=== PATIENT | male | born 1965 | race Caucasian/White ===

== ENCOUNTER 2021-04-29 07:41 | Emergency (ER) | payer OTHER, SELFPAY ==
--- NOTE | ~2021-04-29 | XR_ITS ---
EXAMINATION: XR FOOT, LEFT CLINICAL INFORMATION: Trauma COMPARISON: None TECHNIQUE: AP, lateral, and oblique views of the left foot. FINDINGS: There is a small ossification projecting over the soft tissues adjacent to the anterior talus appreciated on the lateral view questionable for changes related to trauma. No other fracture is seen. Bone alignment is normal. Joint spaces are normal. Soft tissues are otherwise normal. XR/XR foot LT 2V IMPRESSION: Small soft tissue ossification adjacent to the anterior talus appreciated on the lateral view only questionable for fracture. Clinical correlation recommended.
[2021-04-29 07:49] VITALS: BP 140/77; PULSE 84; RESP 16; TEMP 36.6; O2SAT 99; BMI 23.1
--- NOTE | 2021-04-29 08:48 | ED_ITS ---
HPI - Extremity Injury (Lower) General Chief Complaint: Extremity Injury, Lower Stated Complaint: foot inj Time Seen by Provider: 04/29/21 08:43 Source: patient Mode of arrival: ambulatory Limitations: no limitations History of Present Illness MD complaint: ankle injury and foot injury Onset (ago): day(s) (2) Type of Injury: other (He reports he ran over his foot with an electric Nick palate) Place: work Severity: severe Severity scale (1-10): >10 Relieving factors: nothing Exacerbating factors: weight bearing, movement and palpation Context: direct blow Associated symptoms: swelling and able to partially bear weight Other symptoms: none Related Data Previous Rx's Medication Instructions Recorded acetaminophen 500 mg tablet 1,000 mg PO QID PRN #14 tab 04/29/21 (Tylenol Extra Strength) ibuprofen 800 mg tablet 800 mg PO Q8H PRN #14 tab 04/29/21 Allergies Allergy/AdvReac Type Severity Reaction Status Date / Time No Known Allergies Allergy Unverified 02/07/20 14:48 Review of Systems Review of Systems: Constitutional : No Weight loss, No Fever, No Chills, No Night Sweats, No Fatigue, No Malaise ENT/Mouth : No Hearing loss, No Ear Pain, No Nasal Congestion, No Sinus Pain, No Hoarseness, No sore throat, No Rhinorrhea, No Swallowing Difficulty Eyes: No Eye Pain, No Swelling, No Redness, No Foreign Body, No Discharge, No Vision Changes Cardiovascular : No Chest Pain, No SOB, No Dyspnea on Exertion, No Orthopnea, No Edema, No Palpitations Respiratory : No Cough, No Sputum, No Wheezing, No Smoke Exposure, No Dyspnea Gastrointestinal : No Nausea, No Vomiting, No Diarrhea, No Constipation, No abdominal Pain, No Hematochezia, No Melena Genitourinary : no irregular bleeding, No Dysuria, No Urinary Frequency, No Hematuria, No Urinary Incontinence, No Urgency, No Flank Pain, No Urinary Flow C hanges, No Hesitancy Musculoskeletal : + joint pain/swelling, No Myalgias Skin : No Skin Lesions, No rash Neuro : No Weakness, No Numbness, No Paresthesias, No Loss of Consciousness, No Dizziness, No Headache Psych : No Anxiety/Panic, No Depression, No SI/HI/AH/VH, No Social Issues, Heme/Lymph: No Bruising, No Bleeding,No Lymphadenopathy Endocrine : No Polyuria, No Polydipsia, No Temperature Intolerance Yes all other systems are reviewed and are negative [facility] Past Medical History Attestation statement: The following information was validated with the patient. Social History Social History Advance Directives: No Advance Directives Information Provided: No Physical Exam Vital Signs: Vital Signs: Last Vital Signs Temp 97.9 F 04/29/21 07:49 Pulse 84 04/29/21 07:49 Resp 16 04/29/21 07:49 BP 140/77 H 04/29/21 07:49 Pulse Ox 99 04/29/21 07:49 BMI result Body Mass Index 23.1 vital signs have been reviewed as normal and appeared to be correct. Blood pressure normal Heart rate normal. Respiration rate normal. Temperature normal. Oxygen saturation normal. Appearance: Alert. Oriented X3. No acute distress. Head: Normal external exam. Normocephalic. Atraumatic. Eyes: PERRLA. EOMI. Conjunctiva and sclera normal. Eyelids normal. ENT: Pharynx normal. Uvula midline. Moist mucous membranes. Neck: Normal inspection. Neck supple. FROM. CVS: Normal heart rate and rhythm. Respiratory: No respiratory distress. Painless inspiration. Skin: Skin warm and dry. Normal skin color. Normal skin turgor. No rashes/lesions/lacerations noted. Extremities: Patient with moderate tenderness to palpation to the anterior and posterior aspect of the left foot/ankle joint with soft tissue swelling noted to the posterior ankle/foot joint. No obvious deformities. Patient has full range of motion of ankle and foot joint. No obvious ligamentous or tendon injury. Achilles tendon is intact. No calf tenderness is noted. No lower extremity edema is noted. Otherwise all other Extremities exhibit normal range of motion and nontender. Neuro: Oriented X 3. No motor deficit. No sensory deficit. Reflexes normal. Normal steady gait. No focal neuro deficits noted. Vascular: + radial pulses/+ 2 distal pedal pulses/+2 dorsalis pedis b/l. Normal cap refill. No cyanosis noted to upper extremity nails and lower extremity toes nails. Course Course Course Narrative: 55-year-old male presenting to the ED with work related injury that occurred on Tuesday where he ran over his foot with an electric Pallet Nick and since then has been having pain and swelling to the left foot/ankle joint. X-ray obtained and revealed soft tissue swelling and possible anterior talus fracture otherwise no other acute processes. Therefore placed in an ortho boot with crutches and treat symptomatically I consulted with orthopedic MEGHA Hollis and she recommended this. Along with instructions to follow up [facility] and to return if any new or worsening symptoms. Patient understands agrees with this plan. MDM - Extremity Injury (Lower) Medical Records Attestation: I reviewed the patient's medical records. Imaging Data Left foot x-ray: Attestation: I personally reviewed and interpreted this imaging study as follows: Radiologist's impression: FINDINGS: There is a small ossification projecting over the soft tissues adjacent to the anterior talus appreciated on the lateral view questionable for changes related to trauma. No other fracture is seen. Bone alignment is normal. Joint spaces are normal. Soft tissues are otherwise normal. XR/XR foot LT 2V IMPRESSION: Small soft tissue ossification adjacent to the anterior talus appreciated on the lateral view only questionable for fracture. Clinical correlation recommended. Procedures Orthopedic Splinting/Casting Injury #1: Side: left Lower Extremity Injury Location: ankle and foot Lower Extremity Immobilizer: boot orthosis Other Orthopedic Equipment: crutches Discharge Plan Discharge Clinical Impression: Fracture of talus, Work related injury Patient Disposition: Home, Self-Care Instructions: Ankle Fracture (ED), Crutch Instructions (ED), Foot Fracture in Adults (ED), Return to Work Instructions (ED) Prescriptions: New ibuprofen 800 mg tablet 800 mg PO Q8H PRN (Reason: pain) Qty: 14 RF: 0 acetaminophen [Tylenol Extra Strength] 500 mg tablet 1,000 mg PO QID PRN (Reason: fever or pain) Qty: 14 RF: 0 Referrals: [facility] [Provider Group] - 2 days Shad Mathur MD [Physician] - 2 days Stand Alone Forms: Work/School Release Print Language: Citizen Of [place]
== END 2021-04-29 09:18 | disposition home or self-care (01) ==
PROVIDERS: Emergency Provider Emergency Medicine
DX: S92.102A Unspecified fracture of left talus, initial encounter for closed fracture (principal); W31.89XA Contact with other specified machinery, initial encounter; Y93.9 Activity, unspecified; Y92.9 Unspecified place or not applicable; Y99.0 Civilian activity done for income or pay
CPT/HCPCS: 73620; 99283; 99284

== ENCOUNTER → 2021-05-14 10:17 | Outpatient (BNVA) | payer OTHER, SELFPAY | PROVIDERS: Visit Provider Physician Assistant | DX: S86.012A Strain of left Achilles tendon, initial encounter (principal) | CPT/HCPCS: 99202 ==

== ENCOUNTER 2021-06-15 09:29 | Outpatient (REF) | payer OTHER, SELFPAY ==
--- NOTE | ~2021-06-15 | XR_ITS ---
EXAMINATION: XR FOOT, LEFT CLINICAL INFORMATION: Pain COMPARISON: Left foot radiographs 04/29/2021 TECHNIQUE: AP, lateral, and oblique views of the left foot. FINDINGS: Bones of the midfoot are well aligned. No tarsal, metatarsal or phalangeal fracture. Subtle cortical irregularity of the anterior talus is less well appreciated on today's imaging but possibly represents a healing avulsion fracture vs. subtle degenerative changes. No focal soft tissue swelling is present. No gross ankle joint effusion. XR/XR foot LT min 3V IMPRESSION: No definitive fracture.
== END 2021-06-15 09:30 | disposition home or self-care (01) ==
LOC: HO.HOSX 09:29
PROVIDERS: Visit Provider Physician Assistant
DX: M79.673 Pain in unspecified foot (principal)
CPT/HCPCS: 73630; 99212

== ENCOUNTER → 2021-06-23 11:13 | Outpatient (BNVA) | payer OTHER, SELFPAY | PROVIDERS: Visit Provider Physician Assistant | DX: S93.402D Sprain of unspecified ligament of left ankle, subsequent encounter (principal); S86.012D Strain of left Achilles tendon, subsequent encounter; L97.521 Non-pressure chronic ulcer of other part of left foot limited to breakdown of skin | CPT/HCPCS: 99212 ==

== ENCOUNTER 2021-08-05 05:46 | Emergency (ER) | payer OTHER, SELFPAY ==
--- NOTE | ~2021-08-05 | XR_ITS ---
EXAMINATION: XR FOOT, LEFT CLINICAL INFORMATION: Evaluate for ostial COMPARISON: June 15, 2021 and April 29, 2021 TECHNIQUE: AP, lateral, and oblique views of the left foot. FINDINGS: There is some soft tissue swelling seen about the proximal and distal second phalanx without adjacent erosion or osteopenia. There is question of a small skin ulceration about the medial aspect of the distal toe. No acute fracture or dislocation is evident. XR/XR foot LT min 3V IMPRESSION: No plain film evidence of acute osteomyelitis of the left foot. Soft tissue swelling about the second toe.
[2021-08-05 06:07] VITALS: BP 128/93; PULSE 81; RESP 16; TEMP 36.6; O2SAT 98; BMI 22.8
--- NOTE | 2021-08-05 08:03 | ED.EXTPRO ---
HPI - Extremity Problem General Chief complaint: Extremity Problem Stated complaint: L foot pain ; diabetes ?? Time Seen by Provider: 08/05/21 06:34 Source: patient Mode of arrival: ambulatory Limitations: no limitations History of Present Illness HPI Narrative: on and off rash to L foot since being in walking boot in april just put on bactrim keflex clotrimazole ointment 08/03 by urgent care center MD Complaint: extremity pain, extremity swelling and other (rash) Onset (ago): week(s) (1) Pain Consistency: constant Location: left and other (foot toes 2 - 4) Quality: aching Radiation: none Relieving factors: nothing Exacerbating factors: weight bearing and palpation Associated symptoms: rash Context: other (bouts of rash since wearing a walking boot for foot fracture, 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 construction 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) Related Data Previous Rx's Medication Instructions Recorded acetaminophen 500 mg tablet 1,000 mg PO QID PRN #14 tab 04/29/21 (Tylenol Extra Strength) ibuprofen 800 mg tablet 800 mg PO Q8H PRN #14 tab 04/29/21 cephalexin 500 mg capsule 500 mg PO BID 10 Days #20 cap 06/15/21 silver sulfadiazine 1 % topical 1 appl TOPICAL BID PRN #20 g 06/23/21 cream (Silvadene) levofloxacin 750 mg tablet 750 mg PO DAILY #10 tab 08/05/21 nystatin 100,000 unit/gram topical 1 appl TOPICAL TID 7 Days #30 g 08/05/21 powder Allergies Allergy/AdvReac Type Severity Reaction Status Date / Time No Known Allergies Allergy Verified 06/23/21 11:35 Review of Systems Review of Systems: Constitutional : No Fever, No Chills ENT/Mouth : No sore throat, No Rhinorrhea Eyes: No Eye Pain, No Swelling, No Redness Cardiovascular : No Chest Pain, No SOB Respiratory : No Cough, No Sputum Gastrointestinal : No Nausea, No Vomiting, No Diarrhea, No abdominal Pain Genitourinary : No Dysuria, No Hematuria Musculoskeletal : No joint pain, No Myalgias, No Joint Swelling Skin :pos Skin Lesions, positive skin rash Neuro : No Weakness, No Numbness, No Headache Psych : No Anxiety, No Depression Heme/Lymph: No Bruising, No Bleeding,No Lymphadenopathy Endocrine : No Polyuria, No Polydipsia All other systems reviewed and are negative PMFSH Past Medical History Attestation statement: The following information was validated with the patient. 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 Oriented X3. No acute distress. Eyes: Pupils equal, round and reactive to light. ENT: Pharynx normal. Neck: Normal inspection. Neck supple. CVS: Normal heart rate and rhythm. Pulses normal. Respiratory: No respiratory distress. Breath sounds normal. Abdomen: Soft and non-tender. Skin: Skin warm and dry. Normal skin color. Extremities: No lower extremity edema. L foot erythema on dorsum up to 2-4th toes area between toes is red and macerated with swelling of the digtis, thickened nails on all toes, very tender to touch, 2+ DP/PT pulses Neuro: Oriented X 3. No motor deficit. No sensory deficit. Course Course Course Narrative: foot is less red neg infl markers, neg systemic symptoms plan is to switch from bactrim to levofloxacin, no boots for 1 week, no ointment but powder can continue cephalexin MDM - Extremity (Nontraumatic) MDM Narrative Medical decision making narrative: 55 yo male hx of smoking, reports intermittent rash to left foot since wearing a walking boot in april - at this time he has cellulitis and the areas between his toes are macerated. He wears construction boots to work. Will obtain labs, xrays for osteo, inflammatory markers, start on IV antitibiotics as he has been taking cephalexin and bactrim without relief. Will need topical therapy likely powder and not ointment as his feet are already wet from the boots. Suspect he may not want to stay overnight from our initial interactions if that is the case he will need some form of pseudomonas coverage of his foot given the boots and likely a new pair of boots Lab Data Result diagrams: 08/05/21 08:24 08/05/21 08:15 Labs: Lab Results 08/05/21 08/05/21 08/05/21 Range/Units 08:14 08:15 08:15 WBC (4.8-10.8) X10*3/uL RBC (4.60-5.80) X10*6/uL Hgb (14.0-18.0) g/dl Hct (42.0-52.0) % MCV (80.0-98.0) fL MCH (27.0-33.0) pg MCHC (31.0-36.0) g/dl RDW (11.0-16.0) % Plt Count (160-400) X10*3/uL MPV (9.4-12.4) fL Immature Gran % (Auto) (0.0-0.4) % Neut % (Auto) (45-73) % Lymph % (Auto) (20-40) % Divide % (Auto) (2-11) % Eos % (Auto) (0-4) % Baso % (Auto) (0-2) % Lymph # (Auto) (1.2-4.9) X10*3/uL Divide # (Auto) (0.1-1.2) X10*3/uL Eos # (Auto) (0.0-0.4) X10*3/uL Baso # (Auto) (0.0-0.2) X10*3/uL Abs Immat Gran (auto) (0.00-0.03) X10*3/uL Absolute Neuts (auto) (2.0-8.3) x10*3/uL Absolute Nucleated RBC (0.0-0.012) X10*3/uL Nucleated RBC % (auto) (0.0-0.2) /100WBC ESR 1 (0-15) MM/HR Sodium 140 (135-145) mmol/L Potassium 4.7 (3.3-5.1) mmol/L Chloride 108 (96-108) mmol/L Carbon Dioxide 23 (22-29) mmol/L Anion Gap 14 (12-20) BUN 16 (9-16) mg/dL Creatinine 0.81 (0.5-1.4) mg/dL Estim Creat Clear Calc 104.8 Estimated GFR > 60 Random Glucose 106 (60-115) mg/dL Estimat Average Glucose mg/dL Hemoglobin A1c % % Lactic Acid 0.9 (0.5-2.0) mmol/L Calcium 9.7 (8.4-10.2) mg/dL Magnesium 2.5 (1.6-2.6) mg/dL Total Bilirubin 0.3 (0.0-1.0) mg/dL Direct Bilirubin < 0.2 (0.0-0.5) mg/dL AST 14 (5-37) U/L ALT 13 (0-40) U/L Alkaline Phosphatase 71 (39-117) U/L C-Reactive Protein 0.17 (< or = 0.50) mg/dL Total Protein 6.9 (6.5-8.0) g/dL Albumin 4.2 (3.5-5.0) g/dL 08/05/21 08/05/21 Range/Units 08:15 08:24 WBC 13.5 H (4.8-10.8) X10*3/uL RBC 4.98 (4.60-5.80) X10*6/uL Hgb 15.7 (14.0-18.0) g/dl Hct 47.7 (42.0-52.0) % MCV 95.8 (80.0-98.0) fL MCH 31.5 (27.0-33.0) pg MCHC 32.9 (31.0-36.0) g/dl RDW 12.6 (11.0-16.0) % Plt Count 346 (160-400) X10*3/uL MPV 9.5 (9.4-12.4) fL Immature Gran % (Auto) 0.5 H (0.0-0.4) % Neut % (Auto) 67.2 (45-73) % Lymph % (Auto) 24.7 (20-40) % Divide % (Auto) 5.6 (2-11) % Eos % (Auto) 1.6 (0-4) % Baso % (Auto) 0.4 (0-2) % Lymph # (Auto) 3.3 (1.2-4.9) X10*3/uL Divide # (Auto) 0.8 (0.1-1.2) X10*3/uL Eos # (Auto) 0.2 (0.0-0.4) X10*3/uL Baso # (Auto) 0.1 (0.0-0.2) X10*3/uL Abs Immat Gran (auto) 0.07 H (0.00-0.03) X10*3/uL Absolute Neuts (auto) 9.0 H (2.0-8.3) x10*3/uL Absolute Nucleated RBC 0.000 (0.0-0.012) X10*3/uL Nucleated RBC % (auto) 0.0 (0.0-0.2) /100WBC ESR (0-15) MM/HR Sodium (135-145) mmol/L Potassium (3.3-5.1) mmol/L Chloride (96-108) mmol/L Carbon Dioxide (22-29) mmol/L Anion Gap (12-20) BUN (9-16) mg/dL Creatinine (0.5-1.4) mg/dL Estim Creat Clear Calc Estimated GFR Random Glucose (60-115) mg/dL Estimat Average Glucose 103 mg/dL Hemoglobin A1c % 5.2 % Lactic Acid (0.5-2.0) mmol/L Calcium (8.4-10.2) mg/dL Magnesium (1.6-2.6) mg/dL Total Bilirubin (0.0-1.0) mg/dL Direct Bilirubin (0.0-0.5) mg/dL AST (5-37) U/L ALT (0-40) U/L Alkaline Phosphatase (39-117) U/L C-Reactive Protein (< or = 0.50) mg/dL Total Protein (6.5-8.0) g/dL Albumin (3.5-5.0) g/dL Discharge Plan Discharge Clinical Impression: Cutaneous fungal infection Cellulitis Qualifiers: Site of cellulitis: extremity Site of cellulitis of extremity: lower extremity Laterality: left Qualified Code(s): L03.116 - Cellulitis of left lower limb Patient Disposition: Home, Self-Care Instructions: Cellulitis (ED), Skin Yeast Infection (ED) Additional Instructions: return to ED for any worsening symptoms or concerns STOP BACTRIM AND CLOTRIMAZOLE OINTMENT CONTINUE CEPHALEXIN RETURN IF NOT BETTER IN 2 DAYS NO BOOTS FOR 1 WEEK, CLEAN DRY SOCKS - MOISTURE WICKING socks Prescriptions: New levofloxacin 750 mg tablet 750 mg PO DAILY Qty: 10 0RF nystatin 100,000 unit/gram powder 1 appl topical TID 7 Days Qty: 30 0RF No Action ibuprofen 800 mg tablet 800 mg PO Q8H PRN (Reason: pain) Qty: 14 0RF acetaminophen [Tylenol Extra Strength] 500 mg tablet 1,000 mg PO QID PRN (Reason: fever or pain) Qty: 14 0RF cephalexin 500 mg capsule 500 mg PO BID 10 Days Qty: 20 0RF silver sulfadiazine [Silvadene] 1 % cream 1 appl topical BID PRN (Reason: wound healing) Qty: 20 0RF Rx Instructions: apply a 1.5 mm thickness Stand Alone Forms: Work/School Release
[2021-08-05] MEDS: Piperacillin Sodium/Tazobactam 3.375 GM in 0.9 % Sodium Chloride 50 ML IV (08:32)
[2021-08-05 08:34] LABS: Lactic Acid 0.9 mmol/L (0.5-2.0)
[2021-08-05 08:38] LABS: MANUAL DIFF FLAG NO
[2021-08-05 08:39] LABS: Alanine Aminotransferase 13 U/L (0-40); Albumin Level 4.2 g/dL (3.5-5.0); Alkaline Phosphatase 71 U/L (39-117); Anion Gap 14 (12-20); Aspartate Amino Transferase 14 U/L (5-37); Bilirubin Direct < 0.2 mg/dL (0.0-0.5); Bilirubin Total 0.3 mg/dL (0.0-1.0); Blood Urea Nitrogen 16 mg/dL (9-16); C Reactive Protein 0.17 mg/dL (< or = 0.50); Calcium 9.7 mg/dL (8.4-10.2); Carbon Dioxide 23 mmol/L (22-29); Chloride 108 mmol/L (96-108); Creatinine Clr Calc Pharmacy 104.8; Estimated Glomerular Filt Rate > 60; Glucose Random 106 mg/dL (60-115); Magnesium 2.5 mg/dL (1.6-2.6); Potassium 4.7 mmol/L (3.3-5.1); Sodium 140 mmol/L (135-145); Total Protein 6.9 g/dL (6.5-8.0)
[2021-08-05 08:47] LABS: Estimated Average Glucose 103 mg/dL; Hemoglobin A1c % 5.2 %
[2021-08-05 08:47] LABS: Basophils Absolute Auto 0.1 X10*3/uL (0.0-0.2); Basophils Percent Auto 0.4 % (0-2); Eosinophils Absolute Auto 0.2 X10*3/uL (0.0-0.4); Eosinophils Percent Auto 1.6 % (0-4); Hematocrit 47.7 % (42.0-52.0); Hemoglobin 15.7 g/dl (14.0-18.0); Imm Gran Abs Auto 0.07 X10*3/uL (0.00-0.03); Imm Gran Pct Auto 0.5 % (0.0-0.4); Lymphocytes Absolute Auto 3.3 X10*3/uL (1.2-4.9); Lymphocytes Percent Auto 24.7 % (20-40); Mean Corpuscular HGB Conc 32.9 g/dl (31.0-36.0); Mean Corpuscular Hemoglobin 31.5 pg (27.0-33.0); Mean Corpuscular Volume 95.8 fL (80.0-98.0); Mean Platelet Volume 9.5 fL (9.4-12.4); Monocytes Absolute Auto 0.8 X10*3/uL (0.1-1.2); Monocytes Percent Auto 5.6 % (2-11); Neutrophils Percent Auto 67.2 % (45-73); Platelet Count 346 X10*3/uL (160-400); Red Blood Count 4.98 X10*6/uL (4.60-5.80); Red Cell Distribution Width 12.6 % (11.0-16.0); White Blood Count 13.5 X10*3/uL (4.8-10.8)
[2021-08-05] MEDS: vancomycin HCL 1,500 MG in 0.9 % Sodium Chloride 500 ML 333.33 MG IV (08:55)
[2021-08-05 09:52] LABS: Erythrocyte Sedimentation Rate 1 MM/HR (0-15)
[2021-08-05] MEDS: Fluconazole 150 MG TABLET PO (11:05)
== END 2021-08-05 11:17 | disposition home or self-care (01) ==
PROVIDERS: Emergency Provider Emergency Medicine; PCP Physician Assistant Medical
DX: L03.116 Cellulitis of left lower limb (principal); B35.3 Tinea pedis; F17.200 Nicotine dependence, unspecified, uncomplicated; Z71.6 Tobacco abuse counseling; Z79.899 Other long term (current) drug therapy
CPT/HCPCS: 36415; 73630; 80048; 80076; 83036; 83605; 83735; 85025; 85652; 86140; 87040; 96365; 96367; 99283; 99284; J2543; J3370

== ENCOUNTER 2023-09-09 15:05 | Emergency (ER) | payer OTHER, SELFPAY ==
--- NOTE | ~2023-09-09 | XR_ITS ---
EXAMINATION: XR PELVIS CLINICAL INFORMATION: Pain, fall 09/06/2023. COMPARISON: None available. TECHNIQUE: AP view of the pelvis. FINDINGS: No fracture or subluxation. Joint spaces are maintained. SI joints are symmetric. No significant soft tissue abnormality. XR/XR pelvis 1-2V IMPRESSION: No evidence of acute traumatic sequela in this radiograph of the pelvis.
[2023-09-09 15:43] VITALS: BP 135/89; PULSE 85; RESP 18; TEMP 37.4; O2SAT 97; BMI 23.8
--- NOTE | 2023-09-09 15:43 | ED_ITS ---
HPI - General Adult General Chief complaint: Extremity Injury, Lower Stated complaint: slipped/ fell. swollen L buttock Time Seen by Provider: 09/09/23 18:53 Source: patient Mode of arrival: ambulatory Limitations: no limitations History of Present Illness HPI narrative: Patient comes to the emergency room complaining of pain in his left buttocks. Patient states that 3 days ago he was playing with his 13-year-old granddaughter, both were running around the house without any shoes, patient slipped and landed on his left buttocks. Patient states that when he sits, the left buttocks hurt. Patient denies fever chills. Related Data Previous Rx's ?Medication ?Instructions ?Recorded acetaminophen 500 mg tablet 1,000 mg (2 x 500 mg) PO QID PRN 04/29/21 (Tylenol Extra Strength) fever or pain #14 tabs ibuprofen 800 mg tablet 800 mg PO Q8H PRN pain #14 tabs 04/29/21 cephalexin 500 mg capsule 500 mg PO BID 10 days #20 caps 06/15/21 silver sulfadiazine 1 % topical 1 appl topical BID PRN wound 06/23/21 cream (Silvadene) healing #20 grams levofloxacin 750 mg tablet 750 mg PO DAILY #10 tabs 08/05/21 nystatin 100,000 unit/gram topical 1 appl topical TID 7 days #30 grams 08/05/21 powder cephalexin 500 mg capsule 500 mg PO BID #14 caps 09/09/23 doxycycline hyclate 100 mg tablet 100 mg PO BID #14 tabs 09/09/23 Allergies Allergy/AdvReac Type Severity Reaction Status Date / Time No Known Allergies Allergy Verified 09/09/23 15:45 Review of Systems 2 Review of Systems: Constitutional : No Weight loss, No Fever, No Chills, No Night Sweats, No Fatigue, No Malaise ENT/Mouth : No Hearing loss, No Ear Pain, No Nasal Congestion, No Sinus Pain, No Hoarseness, No sore throat, No Rhinorrhea, No Swallowing Difficulty Eyes: No Eye Pain, No Swelling, No Redness, No Foreign Body, No Discharge, No Vision Changes Cardiovascular : No Chest Pain, No SOB, No Dyspnea on Exertion, No Orthopnea, No Edema, No Palpitations Respiratory : No Cough, No Sputum, No Wheezing, No Smoke Exposure, No Dyspnea Gastrointestinal : No Nausea, No Vomiting, No Diarrhea, No Constipation, No abdominal Pain, No Hematochezia, No Melena Genitourinary : no irregular bleeding, No Dysuria, No Urinary Frequency, No Hematuria, No Urinary Incontinence, No Urgency, No Flank Pain, No Urinary Flow Changes, No Hesitancy Musculoskeletal : Complaining of left hip/buttocks pain, No Myalgias, No Joint Swelling Skin : No Skin Lesions, No rash Neuro : No Weakness, No Numbness, No Paresthesias, No Loss of Consciousness, No Dizziness, No Headache Psych : No Anxiety/Panic, No Depression, No SI/HI/AH/VH, No Social Issues, Heme/Lymph: No Bruising, No Bleeding,No Lymphadenopathy Endocrine : No Polyuria, No Polydipsia, No Temperature Intolerance [facility] Past Medical History Medical History Achilles tendon sprain Social History Social History (Updated 08/05/21 @ 08:16 by Irlanda Salgado DO) Patient Tobacco Use Status: Current everyday Tobacco user Advance Directives: No Advance Directives Information Provided: No Current occupational status: employed 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 Oriented X3. No acute distress. Eyes: Pupils equal, round and reactive to light. ENT: Pharynx normal. Neck: Normal inspection. Neck supple. No lymph nodes noted. No crepitus CVS: Normal heart rate and rhythm. Pulses normal. Normal S1 and S2 Respiratory: No respiratory distress. Breath sounds normal. No Wheezing. No rales Abdomen: Soft and nontender. No rigidity. No distention. Skin: On the left buttocks, patient has an eschar and cellulitis. Extremities: No lower extremity edema. No Lacerations. No Rash Neuro: Oriented X 3. No motor deficit. No sensory deficit. Moving all extremities. No slurred speech. CN 2 through 12 grossly intact Psych: calm, cooperative, normal affect Course Course Course Narrative: This is an RME: Additional HPI, ROS, PE not included below will be deferred to primary provider. 57 yo m presents with slip and fall on 09/06/23. Landed on l buttock. Not on any blood thinners. Denies head strike or LOC. Patient reports bruise to l glute. Cannot examine due to lack of privacy in triage. Medical Decision Making Medical Decision Making [facility] Narrative: -patient's white blood cell count a bit elevated, lactic acid normal. No fever, no episodes of hypotension, sepsis not suspected. -I discussed the physical exam with the patient. Patient states that he was not aware that he had cellulitis or describing his buttocks -patient was given the 1st dose of antibiotics in the emergency room. Skin marker was applied to josr the area of erythema. Discussed with the patient that if it spreads, he needs to return to emergency room for IV antibiotics. Differential Diagnosis Differential Diagnoses: The differential diagnosis associated with the presentation includes (Hip fracture, pelvis contusion, ecchymosis, cellulitis) Admission/Observation Consideration of admission/observation: Escalation of care including admission/observation considered (Given the patient's presentation, admission was considered.) Patient has not tried any antibiotics yet. Patient prefers to have p.o. antibiotics 1st and if worsens or if there is no improvement, patient will return to the emergency room, and will likely be admitted Lab Data [facility] Lab Attestation statement: I reviewed the patient's lab results. 09/09/23 19:23 09/09/23 19:23 Labs: Lab Results 09/09/23 Range/Units 19:23 WBC 13.5 H (4.8-10.8) X10*3/uL RBC 4.95 (4.60-5.80) X10*6/uL Hgb 16.0 (14.0-18.0) g/dl Hct 47.6 (42.0-52.0) % MCV 96.2 (80.0-98.0) fL MCH 32.3 (27.0-33.0) pg MCHC 33.6 (31.0-36.0) g/dl RDW 12.9 (11.0-16.0) % Plt Count 289 (160-400) X10*3/uL MPV 8.9 L (9.4-12.4) fL Immature Gran % (Auto) 0.4 (0.0-0.4) % Neut % (Auto) 69.6 (45-73) % Lymph % (Auto) 22.9 (20-40) % [place] % (Auto) 5.2 (2-11) % Eos % (Auto) 1.6 (0-4) % Baso % (Auto) 0.3 (0-2) % Lymph # (Auto) 3.1 (1.2-4.9) X10*3/uL [place] # (Auto) 0.7 (0.1-1.2) X10*3/uL Eos # (Auto) 0.2 (0.0-0.4) X10*3/uL Baso # (Auto) 0.0 (0.0-0.2) X10*3/uL Abs Immat Gran (auto) 0.05 H (0.00-0.03) X10*3/uL Absolute Neuts (auto) 9.4 H (2.0-8.3) x10*3/uL Absolute Nucleated RBC 0.000 (0.0-0.012) X10*3/uL Nucleated RBC % (auto) 0.0 (0.0-0.2) /100WBC Sodium 141 (135-145) mmol/L Potassium 3.7 (3.3-5.1) mmol/L Chloride 106 (96-108) mmol/L Carbon Dioxide 28 (22-29) mmol/L Anion Gap 11 L (12-20) BUN 10 (9-16) mg/dL Creatinine 0.89 (0.5-1.4) mg/dL Estim Creat Clear Calc 93.7 Estimated GFR > 60 Random Glucose 135 H (60-115) mg/dL Lactic Acid 0.7 (0.5-2.0) mmol/L Calcium 9.5 (8.4-10.2) mg/dL Critical Care Time Critical Care Time Critical Care Time: Yes Total Critical Care Time: 35 Attestation: I have personally provided critical care time. Time includes review of lab data, radiology results, discussion with consultants, and monitoring for potential decompensation. Intervention performed as documented. Discharge Plan Discharge Clinical Impression: Cellulitis of buttock, left Patient Disposition: Home, Self-Care Instructions: Cellulitis (ED) Additional Instructions: Please follow-up with your primary care physician tomorrow. If you have any worsening or new symptoms, please return to the emergency room or call 911 Prescriptions: New cephalexin 500 mg capsule 500 mg PO BID Qty: 14 0RF doxycycline hyclate 100 mg tablet 100 mg PO BID Qty: 14 0RF No Action ibuprofen 800 mg tablet 800 mg PO Q8H PRN (Reason: pain) Qty: 14 0RF acetaminophen [Tylenol Extra Strength] 500 mg tablet 1,000 mg PO QID PRN (Reason: fever or pain) Qty: 14 0RF levofloxacin 750 mg tablet 750 mg PO DAILY Qty: 10 0RF nystatin 100,000 unit/gram powder 1 appl topical TID 7 Days Qty: 30 0RF cephalexin 500 mg capsule 500 mg PO BID 10 Days Qty: 20 0RF silver sulfadiazine [Silvadene] 1 % cream 1 appl topical BID PRN (Reason: wound healing) Qty: 20 0RF Rx Instructions: apply a 1.5 mm thickness Print Language: Faroese
--- OUTSIDE RECORDS SUMMARY | 2023-09-09 19:23 | XMS_ITS | Continuity of Care Document ---
Author Organization [facility] Adult Address [address] [place] [address]- Care Team Providers Care Town Clerk Name Role Phone Rigo Corrigan Primary Care Physician Encounter [facility] Date(s): 05/14/20 - 05/21/20 [facility] Adult [address] [place] [address]- Encounter Diagnosis Annual visit for general adult medical examination with abnormal findings (Discharge Diagnosis) - 05/14/20 Sleep apnea(Discharge Diagnosis) - 05/14/20 Ischemic heart disease screen(Discharge Diagnosis) - 05/14/20 Encounter for screening fecal occult blood testing(Discharge Diagnosis) - 05/14/20 Cigarette nicotine dependence(Discharge Diagnosis) - 05/14/20 Attending Physician: Rigo Corrigan Allergies, Adverse Reactions, Alerts Substance Reaction Severity Status NKA Active Immunizations Given and Recorded Vaccine Date Status Refusal Reason Influenza Virus Vaccine (oldterm) 06/02/18 Recorde d Problem List Condition Effective Dates Status Health Status Inform ant Cigarette nicotine dependence(Confirmed) Active Diagnosis Diagnosis Type Effective Dates Health Status Clinical Service Informant Annual visit for general adult medical examination with abnormal findings Discharge Diagnosis 05/14/20 Sleep apnea Discharge Diagnosis 05/14/20 Ischemic heart disease screen Discharge Diagnosis 05/14/20 Encounter for screening fecal occult blood testing Discharge Diagnosis 05/14/20 Cigarette nicotine dependence Discharge Diagnosis 05/14/20 Vital Signs Most recent to oldest [Reference Range]: 1 Height 175 cm (05/14/20 9:07 AM) Weight 71.3 kg (05/14/20 9:07 AM) Oxygen Saturation [94-100 %] 98 % (05/14/20 9:07 AM) Pulse Rate [55-90 bpm] 76 bpm (05/14/20 9:07 AM) Body Mass Index [18.5-24.99] 23.28 (05/14/20 9:07 AM) Blood Pressure [90-138/55-84 mm Hg] 110/ 74mm Hg (05/14/20 9:07 AM) Mode of Delivery (Oxygen) Room air (05/14/20 9:07 AM) Blood pressure sites Arm, left (05/14/20 9:07 AM) Social History Social History Type Response Smoking Status 5-9 cigarettes (betw een 1/4 to 1/2 pack)/day in last 30 days; Other: Never smoked 1 ppd for 30 years; Started at age: 22; entered on: 05/14/20 Sex
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
--- OUTSIDE RECORDS SUMMARY | 2023-09-09 19:23 | XMS_ITS | Continuity of Care Document ---
Author Organization [facility] Adult Address Unknown Care Team Providers Care Business Unit Manager Name Role Phone Rigo Corrigan Primary Care Physician ( [phone] Encounter [facility] Date(s): 06/02/21 - 07/02/21 [facility] [place] Adult Attending Physician: Hilda Briscoe Admitting Physician: Hilda Briscoe Referring Physician: Hilda Briscoe Allergies, Adverse Reactions, Alerts No Known Allergies Immunizations Given and Recorded Vaccine Date Status Refusal Reason SARS-CoV-2 (COVID-19) mRNA-1273 vaccine 11/06/20 R ecorded SARS-CoV-2 (COVID-19) mRNA-1273 vaccine 10/09/20 R ecorded Influenza Virus Vaccine (oldterm) 06/02/18 Recorde d Problem List Condition Effective Dates Status Health Status Inform ant Cigarette nicotine dependence(Confirmed) Active SELAM (obstructive sleep apnea)(Confirmed) Active Social History Social History Type Response Smoking Status 5-9 cigarettes (betw een 1/4 to 1/2 pack)/day in last 30 days; Other: Never smoked 1 ppd for 30 years; Started at age: 22; entered on: 05/14/20 Sex
--- OUTSIDE RECORDS SUMMARY | 2023-09-09 19:23 | XMS_ITS | Continuity of Care Document ---
Author Organization [facility] Adult Address [address] [place] [address]- Care Team Providers Care Acoustical Carpenter Name Role Phone Rigo Corrigan Primary Care Physician Encounter [facility] Date(s): 05/15/20 - 06/14/20 [facility] Adult [address] [place] [address]- Allergies, Adverse Reactions, Alerts Substance Reaction Severity Status NKA Active Immunizations Given and Recorded Vaccine Date Status Refusal Reason Influenza Virus Vaccine (oldterm) 06/02/18 Recorde d Problem List Condition Effective Dates Status Health Status Inform ant Cigarette nicotine dependence(Confirmed) Active Social History Social History Type Response Smoking Status 5-9 cigarettes (betw een 1/4 to 1/2 pack)/day in last 30 days; Other: Never smoked 1 ppd for 30 years; Started at age: 22; entered on: 05/14/20 Sex
--- OUTSIDE RECORDS SUMMARY | 2023-09-09 19:23 | XMS_ITS | Continuity of Care Document ---
Author Organization [facility] Address [address] [place] [address]- Care Team Providers Care Police Officer Name Role Phone Rigo Corrigan Primary Care Physician Encounter [facility] Date(s): 12/28/22 - 01/27/23 [facility] Adult [address] [place] [address]- Allergies, Adverse Reactions, Alerts No Known Allergies Immunizations Given and Recorded Vaccine Date Status Refusal Reason SARS-CoV-2 (COVID-19) mRNA-1273 vaccine 11/06/20 R ecorded SARS-CoV-2 (COVID-19) mRNA-1273 vaccine 10/09/20 R ecorded Influenza Virus Vaccine (oldterm) 06/02/18 Recorde d Medications CPAP Machine See Instructions, # 1 each, Refills 0, Tot. Refills 0, Maintenance, CPAP 9-15cm H2O with Compliancedata and following residual AHI, 07/14/21 14:56:00 EST, Supply Start Date: 07/14/21 Status: Ordered CPAP Equipment See Instructions, # 1 each, Refills 11, Tot. Refills 11, Maintenance, CPAP supplies-- mask, tubing,filters, headgeat, water chamber, chin strap, heated humidifier DX: SELAM G47.33 Use daily therapeutically for relief of SELAM symptoms, 07/14/21 14:56:... Start Date: 07/14/21 Status: Ordered omeprazole 20 mg oral delayed release tablet 1 tablet = 20 mg, By Mouth, 2 times a day, Maintenance, EC Tablet Start Date: 03/11/22 Status: Ordered SUMAtriptan 25 mg oral tablet 1 tablet, By Mouth, Daily, PRN NEEDED FOR MIGRIANE HEADACHE, MAY REPEAT DOSE AFTER 2 HOURS UP YOMAX OF 2, # 9 tablet, 2 Refills, [id number], 175, cm, 07/14/21 13:44:00 EST, Height Start Date: 08/11/21 Status: Ordered Problem List Condition Confirmation Course Effective Dates Status Health St atus Informant GERD (gastroesophageal reflux disease) Confirmed Active Migraine without aura Confirmed Active Cigarette nicotine dependence Confirmed Active SELAM (obstructive sleep apnea) Confirmed Active Social History Social History Type Response Smoking Status 5-9 cigarettes (betw een 1/4 to 1/2 pack)/day in last 30 days; Other: Never smoked 1 ppd for 30 years; Started at age: 22; entered on: 05/14/20 Sex Patient Care team information Care Team Personnel Name: Rigo Corrigan Position: [facility] PCO Associate Professional Member Role: PCP Address: Address: [address] [place] [address] Care Team Related Persons Name: PER SOMMER Address: home [address] [place] [address]
--- OUTSIDE RECORDS SUMMARY | 2023-09-09 19:23 | XMS_ITS | Continuity of Care Document ---
Author Organization [facility] Address Unknown Care Team Providers Care Service Counselor Name Role Phone Rigo Corrigan Primary Care Physician ( [phone] Encounter [facility] Date(s): 07/14/21 - 07/21/21 [facility] [place] [facility] Encounter Diagnosis SELAM (obstructive sleep apnea)(Discharge Diagnosis) - 07/14/21 Cigarette nicotine dependence(Discharge Diagnosis) - 07/14/21 Migraine without aura(Discharge Diagnosis) - 07/14/21 Attending Physician: Rigo Corrigan Allergies, Adverse Reactions, Alerts No Known Allergies [...] 07/14/21 14:56:... Start Date: 07/14/21 Status: Ordered SUMAtriptan 25 mg oral tablet 1 tablet = 25 mg, By Mouth, Daily, PRN for migraine headache, may repeat dose after 2 hours up to amaximum of 2, # 9 tablet, 0 Refills, Maintenance, 07/14/21 14:20:00 EST, Tablet, [id number], Partial fill upon patient request if the prescript... Start Date: 07/14/21 Status: Ordered Problem List Condition Effective Dates Status Health Status Inform ant Migraine without aura(Confirmed) Active Cigarette nicotine dependence(Confirmed) Active SELAM (obstructive sleep apnea)(Confirmed) Active Diagnosis Diagnosis Type Effective Dates Health Status Clinical Service Informant SELAM (obstructive sleep apnea) Discharge Diagnosis 07/14/21 Cigarette nicotine dependence Discharge Diagnosis 07/14/21 Migraine without aura Discharge Diagnosis 07/14/21 Vital Signs Most recent to oldest [Reference Range]: 1 Height 175 cm (07/14/21 1:44 PM) Social History Social History Type Response Smoking Status 5-9 cigarettes (betw een 1/4 to 1/2 pack)/day in last 30 days; Other: Never smoked 1 ppd for 30 years; Started at age: 22; entered on: 05/14/20 Sex
--- OUTSIDE RECORDS SUMMARY | 2023-09-09 19:23 | XMS_ITS | Continuity of Care Document ---
Author Organization [facility] Address [address] [place] [address]- Care Team Providers Care Gristmill Operator Name Role Phone Rigo Corrigan Primary Care Physician Encounter [facility] Date(s): 04/02/22 - 07/31/22 [facility] [address] [place] [address]- Attending Physician: Monique Jimenez MD Admitting Physician: Monique Jimenez MD Referring Physician: Rigo Corrigan Allergies, Adverse Reactions, Alerts [...] OF 2, # 9 tablet, 2 Refills, [id number], 175, cm, 07/14/21 13:44:00 EST, Height Start [...] Care Team Personnel Name: Rigo Corrigan Position: [facility] PCO Associate Professional Member Role: PCP Address: Address: [address] [facility] [address] Care Team Related Persons Name: PER SOMMER Address: home [address] [place] [address]
--- OUTSIDE RECORDS SUMMARY | 2023-09-09 19:23 | XMS_ITS | Continuity of Care Document ---
Author Organization [facility] ter Address [address] [place] [address]- Care Team Providers Care General Passenger Agent Name Role Phone Rigo Corrigan Primary Care Physician Encounter [facility] Date(s): 06/06/20 - 07/12/[address] [address] Attending Physician: Jes Rhodes MD Admitting Physician: Jes Rhodes MD Referring Physician: Jes Rhodes MD Allergies, Adverse Reactions, Alerts Substance Reaction Severity [...]
--- OUTSIDE RECORDS SUMMARY | 2023-09-09 19:23 | XMS_ITS | Continuity of Care Document ---
Author Organization [facility] Address [address] [place] [address]- Care Team Providers Care Director Museum Or Zoo Name Role Phone Rigo Corrigan Primary Care Physician ( [phone] Encounter [facility] Date(s): 07/01/22 - 07/31/22 [facility] [address] [place] [address] Attending Physician: Admtr, [id number] Admitting Physician: Admtr, [id number] Referring Physician: Admtr, Ar8 Allergies, Adverse Reactions, Alerts No Known Allergies [...] # 9 tablet, 2 Refills, [id number], 175, cm, 07/14/21 13:44:00 EST, Height Start [...] Care Team Personnel Name: Rigo Corrigan Position: [facility] PCO Associate Professional Member Role: PCP Address: Address: [address] [facility] [address] Care Team Related Persons Name: PER SOMMER Address: home [address] [place] [address]
--- OUTSIDE RECORDS SUMMARY | 2023-09-09 19:23 | XMS_ITS | Continuity of Care Document ---
Author Organization [facility] Adult Address Unknown Care Team Providers Care Emt Paramedic Name Role Phone Rigo Corrigan Primary Care Physician Encounter [facility] Date(s): 02/17/21 - 07/02/21 [facility] Adult Attending Physician: Rigo Corrigan Allergies, Adverse Reactions, [...]
--- OUTSIDE RECORDS SUMMARY | 2023-09-09 19:23 | XMS_ITS | Continuity of Care Document ---
Author Organization [facility] ter Address [address] [place] [address]- Care Team Providers Care Consumer Loan Processor Name Role Phone Rigo Corrigan Primary Care Physician Encounter [facility] Date(s): 04/28/21 - 04/29/[address] [address]- Discharge Disposition: A-D/C Walkout Attending Physician: Not on Staff, Attending MD Admitting Physician: Not on Staff, Admitting MD Referring Physician: Not on Staff, Referring MD Allergies, Adverse Reactions, Alerts Substance Reaction Severity Status NKA Active Immunizations Given and Recorded Vaccine Date Status Refusal Reason Influenza Virus Vaccine (oldterm) 06/02/18 Recorde d Problem List Condition Effective Dates Status Health Status Inform ant Cigarette nicotine dependence(Confirmed) Active SELAM (obstructive sleep apnea)(Confirmed) Active Results Radiology Reports * Exam Date Time Procedure Performing Provider Status 04/28/21 4:32 PM Foot Min 3 Views Left Marko Rubalcava; Stefany (Verified) Notes: (Foot Min 3 Views Left) Reason For Exam: Pain RESULT: Foot Min 3 Views Left Left foot 3 views dated May 08, 2021. No prior studies are available. HISTORY: Pain. FINDINGS: This examination shows no evidence of fracture or dislocation. There is mild loss of joint space in the first metatarsophalangeal joint. No radiopaque foreign body or soft tissue gas is seen. IMPRESSION: Mild arthritic change. No evidence of fracture or dislocation. Examination [address]. Thank you for allowing me to participate in the care of this patient. WSN: [id number] Ordering Physician: Susan Ott MD Dictated By: Cecil Fu MD Dictated Date/Time: 04/28/21 4:34 pm Reviewed By: Cecil Fu MD Signed By: Cecil Fu MD Signed Date/Time: 04/28/21 4:34 pm Transcribed By: MARIA ESTHER Transcribed Date/Time: 04/28/21 4:33 pm Vital Signs Most recent to oldest [Reference Range]: 1 2 3 Oxygen Saturation [94-100 %] 97 % (04/28/21 6:12 PM) 95 % (04/28/21 3:58 PM) 99 % (04/28/21 3:37 PM) Pulse Rate [55-90 bpm] 68 bpm (04/28/21 6:12 PM) 76 bpm (04/28/21 3:58 PM) 91 bpm *H* (04/28/21 3:37 PM) Blood Pressure [90-138/55-84 mm Hg] 110/60mm Hg (04/28/21 6:12 PM) 108/63mm Hg (04/28/21 3:58 PM) Respiratory Rate [16-30 br/min] 18 br/min (04/28/21 6:12 PM) 18 br/min (04/28/21 3:58 PM) Temperature [96.8-100.4 DegF] 97.9 DegF (04/28/21 6:12 PM) 98.6 DegF (04/28/21 3:58 PM) Mode of Delivery (Oxygen) Room air (04/28/21 6:12 PM) Room air (04/28/21 3:58 PM) Blood pressure sites Arm, left (04/28/21 3:58 PM) Temperature Route Oral (04/28/21 6:12 PM) Oral (04/28/21 3:58 PM) Social History Social History Type Response Smoking Status 5-9 cigarettes (betw een 1/4 to 1/2 pack)/day in last 30 days; Other: Never smoked 1 ppd for 30 years; Started at age: 22; entered on: 05/14/20 Sex
--- OUTSIDE RECORDS SUMMARY | 2023-09-09 19:23 | XMS_ITS | Continuity of Care Document ---
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 Date(s): 12/08/21 - 04/04/22 [facility] [address] [place] [address]- Attending Physician: Lissett Tubbs Admitting Physician: Lissett Tubbs Referring Physician: Rigo Corrigan Allergies, Adverse Reactions, [...] # 9 tablet, 2 Refills, [id number], 175, cm, 07/14/21 13:44:00 EST, Height Start [...] Care Team Personnel Name: Rigo Corrigan Position: [facility] PCO Associate Professional Member Role: PCP Address: Address: [address] [facility] [address] Care Team Related Persons Name: PER SOMMER Address: home [address] [place] [address]
--- OUTSIDE RECORDS SUMMARY | 2023-09-09 19:23 | XMS_ITS | Continuity of Care Document ---
Author Organization [facility] Address Unknown Care Team Providers Care Software Asset Manager Name Role Phone Rigo Corrigan Primary Care Physician Encounter [facility] Date(s): 07/14/21 - 08/13/21 [facility] Attending Physician: Hilda Briscoe Admitting Physician: Hilda Briscoe Referring Physician: trHilda Allergies, Adverse Reactions, Alerts No Known Allergies [...] OF 2, # 9 tablet, 2 Refills, [facility] [id number], 175, cm, 07/14/21 13:44:00 EST, Height Start Date: 08/11/21 Status: Ordered Problem List Condition Effective Dates [...]
--- OUTSIDE RECORDS SUMMARY | 2023-09-09 19:23 | XMS_ITS | Continuity of Care Document ---
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
--- OUTSIDE RECORDS SUMMARY | 2023-09-09 19:23 | XMS_ITS | Continuity of Care Document ---
Author Organization [facility] ter Address [address] [place] [address]- Care Team Providers Care Occupational Therapist'S Assistant Name Role Phone Not on Staff, PCP Primary Care Physician Unavail able Encounter [facility] Date(s): 12/14/19 - 12/14/[address] [address]- [facility] Discharge Disposition: A-D/C Home Attending Physician: Robert Trevino MD Admitting Physician: Robert Trevino MD Referring Physician: Not on Staff, Referring MD Allergies, Adverse Reactions, Alerts Substance Reaction Severity Status NKA Active Vital Signs Most recent to oldest [Reference Range]: 1 2 Oxygen Saturation [94-100 %] 98 % (12/14/19 3:13 PM) 99 % (12/14/19 12:22 PM) Pulse Rate [55-90 bpm] 16 bpm *L* (12/14/19 3:13 PM) 78 bpm (12/14/19 12:22 PM) Blood Pressure [90-138/55-84 mm Hg] 140/ 63mm Hg *H* (12/14/19 3:13 PM) 133/83mm Hg (12/14/19 12:22 PM) Respiratory Rate [16-30 br/min] 20 br/mi n (12/14/19 3:13 PM) 18 br/min (12/14/19 12:22 PM) Temperature [96.8-100.4 DegF] 97.9 DegF (12/14/19 12:22 PM) Mode of Delivery (Oxygen) Room air (12/14/19 3:13 PM) Room air (12/14/19 12:22 PM) Blood pressure sites Arm, right (12/14/19 3:13 PM) Arm, right (12/14/19 12:22 PM) Temperature Route Oral (12/14/19 12:22 PM)
--- OUTSIDE RECORDS SUMMARY | 2023-09-09 19:23 | XMS_ITS | Continuity of Care Document ---
Author Organization [facility] Address [address] [place] [address]- Care Team Providers Care Founder President And Ceo Name Role Phone Not on Staff, PCP Primary Care Physician Unavail able Encounter [facility] Date(s): 12/24/19 - 01/23/20 [facility] [address] [place] [address]- [facility] Allergies, Adverse Reactions, Alerts Substance Reaction Severity Status NKA Active
[2023-09-09 19:27] LABS: MANUAL DIFF FLAG NO
[2023-09-09 19:29] LABS: Basophils Percent Auto 0.3 % (0-2); Eosinophils Absolute Auto 0.2 X10*3/uL (0.0-0.4); Eosinophils Percent Auto 1.6 % (0-4); Hematocrit 47.6 % (42.0-52.0); Imm Gran Abs Auto 0.05 X10*3/uL (0.00-0.03); Imm Gran Pct Auto 0.4 % (0.0-0.4); Lymphocytes Absolute Auto 3.1 X10*3/uL (1.2-4.9); Lymphocytes Percent Auto 22.9 % (20-40); Mean Corpuscular HGB Conc 33.6 g/dl (31.0-36.0); Mean Corpuscular Hemoglobin 32.3 pg (27.0-33.0); Mean Corpuscular Volume 96.2 fL (80.0-98.0); Mean Platelet Volume 8.9 fL (9.4-12.4); Monocytes Absolute Auto 0.7 X10*3/uL (0.1-1.2); Monocytes Percent Auto 5.2 % (2-11); Neutrophils Absolute Auto 9.4 x10*3/uL (2.0-8.3); Neutrophils Percent Auto 69.6 % (45-73); Platelet Count 289 X10*3/uL (160-400); Red Blood Count 4.95 X10*6/uL (4.60-5.80); Red Cell Distribution Width 12.9 % (11.0-16.0); White Blood Count 13.5 X10*3/uL (4.8-10.8)
[2023-09-09 19:38] LABS: Lactic Acid 0.7 mmol/L (0.5-2.0)
[2023-09-09 19:41] LABS: Anion Gap 11 (12-20); Blood Urea Nitrogen 10 mg/dL (9-16); Calcium 9.5 mg/dL (8.4-10.2); Carbon Dioxide 28 mmol/L (22-29); Chloride 106 mmol/L (96-108); Creatinine Clr Calc Pharmacy 93.7; Estimated Glomerular Filt Rate > 60; Glucose Random 135 mg/dL (60-115); Potassium 3.7 mmol/L (3.3-5.1); Sodium 141 mmol/L (135-145)
[2023-09-09] MEDS: Doxycycline Monohydrate 100 MG CAPSULE PO (21:30)
[2023-09-09] MEDS: cephALEXin 500 MG CAPSULE PO (21:30)
[2023-09-09 21:33] VITALS: BP 127/73; PULSE 81; RESP 18; TEMP 36.7; O2SAT 97
[2023-09-09 21:38] VITALS: BP 128/73; PULSE 87; RESP 18; TEMP 36.7; O2SAT 97
== END 2023-09-09 21:39 | disposition home or self-care (01) ==
PROVIDERS: Emergency Provider Emergency Medicine
DX: L03.317 Cellulitis of buttock (principal)
CPT/HCPCS: 36415; 72170; 80048; 83605; 85025; 87040; 99283; 99284

== ENCOUNTER 2023-12-02 08:25 | Day surgery (SDC) | payer OTHER, SELFPAY ==
[2023-11-30 15:10] VITALS: BMI 23.2
--- NOTE | 2023-12-01 09:53 | HO.ANESPROP2 ---
Documented by User: Kemi Levin NP 12/01/23 09:54 HPI - Anesthesia Eval Consult details Narrative: 58yo M for Upper Endoscopy and Colonoscopy PMFSH Active Problems Active Problems: All Active Problems Skin ulcer of third toe, limited to breakdown of skin (Acute) Left ankle sprain (Acute) Past Medical History Medical History SELAM on CPAP Renal calculi Headache GERD (gastroesophageal reflux disease) Achilles tendon sprain Surgical History Surgical History Hx of appendectomy History of surgery on wrist Social History Social History Household Members: Spouse Patient Tobacco Use Status: Current everyday Tobacco user Tobacco use type: Cigarette Cigarettes Per Day: 3 Current occupational status: employed 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 Meds Allergies Allergy/AdvReac Type Severity Reaction Status Date / Time smallpox vaccine,live Allergy Unknown Unknown Verified 11/30/23 15:11 Home Medications ?Medication ?Instructions ?Recorded ?Confirmed ?Last Taken ?Type omeprazole 20 mg capsule,delayed 20 mg PO BID 12/01/23 12/01/23 Unknown History release Exam Height,Weight and Vital Signs: Height 5 ft 9 in Weight 71.214 kg Assessment and Plan Assessment Anesthesia Assessment: Chart Reviewed Documented by User: Laura Victoria MD 12/02/23 10:01 PMFSH Active Problems Active Problems: All Active Problems Skin ulcer of third toe, limited to breakdown of skin (Acute) Left ankle sprain (Acute) Migraine headaches SELAM. 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 Denies broken or loose teeth) Heart: RRR Lungs: CTAB Assessment and Plan Assessment Anesthesia Assessment: Anesthesia Plan Discussed and Chart Reviewed Final Anesthetic Review Family History of Problems with Anesthesia: No History of Problems with Anesthesia: No NPO: Yes ASA Class: III Final Preanesthetic Review: No Changes in Pt Med Stat, Meds/Allgs Chart Reviewed, Consent Obtained/Reviewed and Anes Risks/Benef Reviewed Patient Risk: Intermediate Procedure Risk: Low Assessment/Block/Sedation in SS: Assess/Block/Sedation-SS Anesthetic Plan Anesthetic Plan: TIVA Disposition: Standard PACU
[2023-12-02 09:40] VITALS: BP 124/73; PULSE 69; RESP 18; TEMP 36.1; O2SAT 96
[2023-12-02] MEDS: Lactated Ringers 1,000 ML 100 ML IVCONT (09:44)
--- NOTE | 2023-12-02 11:56 | PC.NURSE ---
24hr update documented on paper.
[2023-12-02 12:23] VITALS: BP 120/72; PULSE 69; RESP 18; TEMP 36.1; O2SAT 95
--- NOTE | 2023-12-02 12:26 | PM.OP ---
Brief Operative Note Date of Service: 12/02/23 Pre-op diagnosis: GERD, Screening Post-op diagnosis: other (GERD, Gastritis, Polyps) Procedure: EGD with biopsies, Colonoscopy to the cecum with hot snare polypectomy x 4, cold snare polypectomy x 1 in Ascending Colon, and marking with submucosal ink and placement of 1 Resolution clip at 25cm Surgeon: Walter Florez MD Anesthesia: MAC Was an Photographic Laboratory Supervisor used for this Procedure?: No Estimated blood loss (mL): 2.0 Pathology: other (A. Gastric antrum B. EG Junction at 40cm C. Ascending colon polyps D. Cecal polyps E. Polyp at 25cm) Condition: stable Disposition: PACU
[2023-12-02 12:28] VITALS: BP 111/75; PULSE 85; RESP 16; O2SAT 95
[2023-12-02 12:33] VITALS: BP 123/97; PULSE 66; RESP 16; O2SAT 96
[2023-12-02 12:38] VITALS: BP 123/81; PULSE 73; RESP 16; TEMP 36.3; O2SAT 98
--- NOTE | 2023-12-02 13:06 | OP_ITS ---
DATE OF SERVICE: 12/02/2023 SURGEON: Walter Florez MD INDICATIONS: The patient presents for evaluation of gastroesophageal reflux and colorectal cancer screening. Full consent has been obtained from him for this, including risks of bleeding and perforation. PREOPERATIVE DIAGNOSIS: POSTOPERATIVE DIAGNOSIS: PROCEDURE PERFORMED: Esophagogastroduodenoscopy with biopsies, and colonoscopy to the cecum with multiple hot snare polypectomies, placement of 1 Resolution clip on the polypectomy site at 25 cm, and marking with submucosal ink at the polypectomy site at 25 cm. ESTIMATED BLOOD LOSS: COMPLICATIONS: ANESTHESIA: Monitored anesthesia care. ASSISTANTS: SPECIMENS: PREOPERATIVE DIAGNOSES: Gastroesophageal reflux and colorectal cancer screening. POSTOPERATIVE DIAGNOSES: Gastroesophageal reflux; colorectal cancer screening; small hiatal hernia; gastritis; gastroesophageal reflux, rule out Laurent esophagus; colon polyps; diverticulosis; and internal hemorrhoids. DESCRIPTION OF PROCEDURE: The patient was placed in the left lateral decubitus position. The Olympus video gastroscope was passed in the posterior oropharynx and upper esophagus under direct vision. The scope was passed slowly into the distal esophagus. The gastroesophageal junction appeared at 40 cm. This area was notable for some irregularity, edema, and friability, and some very minimal areas of possible Laurent mucosa. There were no lesions nor ulceration. The scope entered the stomach. There was a minimal hiatal hernia. The scope was advanced to the pylorus and the duodenum was cannulated to the descending portion. The duodenum including the bulb appeared normal without mass or ulceration. The scope was withdrawn back in the stomach. The gastric antrum had changes of gastritis with some erythema and edema, as well as some minimal friability. There were no erosions or ulceration. There was good peristalsis. Biopsies were obtained from the antrum. The scope was retroflexed, visualizing the proximal stomach carefully, which appeared normal, without any sign of mass or ulceration. Scope was straightened and withdrawn back to the esophagus. Biopsies were obtained from the EG junction at 40 cm. Proximal to that, the esophageal mucosa appeared normal. The scope was withdrawn from the patient. He was turned around for the colonoscopy. The digital rectal exam revealed no abnormalities. The Olympus video pediatric colonoscope was then entered into the rectum and advanced to the cecum. Once in the cecum, I did identify normal-appearing cecal pouch other than 2 polyps. The appendiceal orifice appeared normal. The ileocecal valve appeared normal. Each of the polyps was between 6 and 8 mm in diameter. These were both removed with hot snare polypectomy and recovered by suction. They were placed in the same container. Both polypectomy sites appeared clean, without any sign of residual polyp nor bleeding. The scope was then slowly withdrawn assessing all mucosal surfaces carefully. Preparation was excellent. In the ascending colon, were 2 polyps. One was approximately 10 mm on a fold, which was removed by hot snare polypectomy and recovered by suction. The polypectomy site appeared clean, without any sign of residual polyp nor bleeding. There was a 2nd approximately 5 mm polyp, which was removed by cold snare polypectomy and recovered by suction. The polypectomy site appeared clean, without any sign of residual polyp nor any significant bleeding. At 25 cm, was a large approximately 1.5 cm polyp on a thick stalk, which was removed by hot snare polypectomy and then brought out on the tip of the scope. The scope was advanced back to the polypectomy site. Of note, this area was quite difficult due to a lot of spasm as well as the patient's snoring during the procedure. However, the polypectomy site appeared clean, without any sign of residual polyp nor bleeding. A single Resolution clip was applied to the polypectomy site with good deployment and good hemostasis. I did place a single submucosal ink josr approximately 5 cm distal to the polypectomy site. I did not visualize any other polyps, colitis, or angiodysplasias. There was a mild amount of sigmoid diverticulosis. In the rectum, scope was retroflexed, visualizing internal hemorrhoids, but no other pathology. The rectal mucosa appeared normal. The scope was straightened and withdrawn from the patient. He tolerated the procedure well and was returned to the recovery area in stable condition. IMPRESSION: 1. Colon polyps. 2. Diverticulosis. 3. Internal hemorrhoids. 4. Gastritis. 5. Hiatal hernia with gastroesophageal reflux. Rule out Laurent esophagus. PLAN: The results of the biopsies will be checked. He has been advised to continue his daily omeprazole. He was advised not to use any aspirin or NSAIDs for at least 1 week. I would recommend a repeat colonoscopy in 1 year for further surveillance. This has been discussed with his . He will, otherwise, see me on a p.r.n. basis. MD LILLIAN Greer/OFELIA / [id number]
== END 2023-12-02 12:55 | disposition home or self-care (01) ==
PROVIDERS: Visit Provider Internal Medicine
PROC: (CPT 43239; principal; 2023-12-02 10:30)
DX: K29.60 Other gastritis without bleeding (principal); K44.9 Diaphragmatic hernia without obstruction or gangrene; K21.9 Gastro-esophageal reflux disease without esophagitis; Z12.11 Encounter for screening for malignant neoplasm of colon; D12.0 Benign neoplasm of cecum; D12.2 Benign neoplasm of ascending colon; D12.7 Benign neoplasm of rectosigmoid junction; K57.30 Diverticulosis of large intestine without perforation or abscess without bleeding; K64.8 Other hemorrhoids; G47.33 Obstructive sleep apnea (adult) (pediatric); Z99.89 Dependence on other enabling machines and devices; F17.210 Nicotine dependence, cigarettes, uncomplicated; Z79.899 Other long term (current) drug therapy
CPT/HCPCS: 43239; 45385; 45381; 88305; 88313; 88342; J2704